=== PATIENT | male | born 1965 | race Caucasian/White ===

== ENCOUNTER 2019-03-28 06:27 | Outpatient (CLI) | payer BC ==
[~2019-03-28] VITALS: Ht 180.3 cm; Wt 137.4 kg
[2019-03-28] MEDS ORDERED: HYDR25TA4 PO (13:48)
[2019-03-28] MEDS ORDERED: ENAL10TA PO (13:48)
== END 2019-03-28 14:22 | disposition home or self-care (01) ==
LOC: PREOP 06:27
PROVIDERS: ATTEND Surgery
DX: Z01.818 Encounter for other preprocedural examination (principal)

== ENCOUNTER 2019-03-29 11:30 | Day surgery (SDC) | payer BC ==
[~2019-03-29] VITALS: Ht 180.3 cm; Wt 137.4 kg
[~2019-03-29 11:30] MED LIST: ENAL10TA PO; HYDR25TA4 PO
[2019-03-29] MEDS ORDERED: NS IV 500 ML 500 ML ONE (11:32)
[2019-03-29] MEDS ORDERED: NS IV 500 ML 500 ML IV PRN (11:38)
[2019-03-29] MEDS ORDERED: LIDOCAINE JELLY 2% 6 ML SYRINGE MM PRN (11:45)
[2019-03-29] MEDS ORDERED: MIDAZOLAM 2 MG/2 ML (VERSED) VIAL IVP ONE (11:45)
[2019-03-29] MEDS ORDERED: fentaNYL INJECTION 100 MCG/2 ML AMP IVP ONE (11:45)
[2019-03-29 11:54] VITALS: BP 152/96
--- NOTE | 2019-03-29 12:09 | Conscious Sedation/ASA ---
Conscious Sedation Pre-Proced Time 12:00 ASA Score 2 For ASA 3 and 4: Consider anesthesia and medical clearance. Also, for patients with a history of failed moderate sedation consider anesthesia. Airway Lungs Heart ASA score ASA 1: a normal healthy patient ASA 2: a patient with a mild systemic disease (mid diabetes, controlled hypertension, obesity ASA 3: a patient with a severe systemic disease that limits activity (angina, COPD, prior Myocardial infarction) ASA 4: a patient with an incapacitating disease that is a constant threat to life (CHF, renal failure) ASA 5: a moribund patient not expected to survive 24 hrs. (ruptured aneurysm) ASA 6: a declared brain- patient whose organs are being harvested. For emergent operations, add the letter E after the classification Mallampati Classification Grade 2 Sedation Plan Analgesia, Amnesia, Plan communicated to team members, Discussed options with patient/fam, Discussed risks with patient/fam The patient is an appropriate candidate to undergo the planned procedure, sedation, and anesthesia. The patient immediately re-assessed prior to indication. ALEK MURRAY MD Mar 29, 2019 12:09
--- NOTE | 2019-03-29 12:10 | Progress Note-Pre Operative ---
Pre-Operative Progress Note H&P Reviewed The H&P was reviewed, patient examined and no changes noted. Date Seen by Provider: Mar 29, 2019 Time Seen by Provider: 12:00 Date H&P Reviewed: Mar 29, 2019 Time H&P Reviewed: 12:00 Pre-Operative Diagnosis: screening o ALEK MURRAY MD Mar 29, 2019 12:10
--- NOTE | 2019-03-29 12:11 | Discharge Inst-Surgical ---
D/C Lap Instructions-TERRI Follow Up Activity as tolerated High Fiber Diet 25g or more per day Avoid Alcohol, Caffeine, Spicy [place] and Acid foods. Drink 64 fluid oz or more of fluids per day. Symptoms to Report: Fever over 101 degree F, Nausea/Vomiting If any problems/questions: Contact your physician or go to Emergency Room ALEK MURRAY MD Mar 29, 2019 12:10
[2019-03-29] MEDS ORDERED: ACETAMINOPHEN 325 MG TABLET PO PRN (12:15)
[2019-03-29] MEDS ORDERED: HYDROcodone/APAP 5 MG/325 MG (LORTAB) TAB PO PRN (12:15)
[2019-03-29] MEDS ORDERED: ONDANSETRON 4 MG/2 ML (SDV) Z0FRAN IVP PRN (12:15)
[2019-03-29] MEDS ORDERED: morphine INJ 10 MG/ML 1ML (SYR OR VIAL) IVP PRN (12:15)
[2019-03-29] MEDS ORDERED: LIDOCAINE JELLY 2% 6 ML SYRINGE ONE (12:55)
[2019-03-29] MEDS ORDERED: fentaNYL INJECTION 100 MCG/2 ML AMP ONE ×2 (12:55)
[2019-03-29] MEDS ORDERED: MIDAZOLAM 2 MG/2 ML (VERSED) VIAL ONE ×4 (12:55→12:56)
--- NOTE | 2019-03-29 13:36 | Progress Note-Post Operative ---
Post-Operative Progess Note Surgeon (s)/Turntable Operator (s) Surgeon ALEK MURRAY MD Turntable Operator: none Pre-Operative Diagnosis screening colo Post-Operative Diagnosis mild chronic stage1 ext and int hemorrhoids. Procedure & Operative Findings Date of Procedure 03/29/19 Procedure Performed/Findings colonoscopy Anesthesia Type cs Estimated Blood Loss Estimated blood loss (mL): minimal Specimens/Packing Specimens Removed none ALEK MURRAY MD Mar 29, 2019 13:36
[2019-03-29 13:55] VITALS: BP 122/74
[2019-03-29 14:25] VITALS: BP 109/71
[2019-03-29 14:45] VITALS: BP 109/71
--- NOTE | 2019-03-29 18:03 | OPERATIVE REPORT ---
DATE OF SERVICE: 03/29/2019 ATTENDING PRIMARY CARE PHYSICIAN: Dr. Laird. PREOPERATIVE DIAGNOSIS: Screening colonoscopy. POSTOPERATIVE DIAGNOSIS: Mild chronic stage I external and internal hemorrhoids. Remainder of the rectum and colon were normal. PROCEDURE: Colonoscopy. SURGEON: Alek Murray MD ANESTHESIA: Conscious sedation. ESTIMATED BLOOD LOSS: Minimal. FINDINGS: Mild chronic stage I external and internal hemorrhoids. Prostate gland was palpable and appeared normal. The remainder of the rectum and colon were normal. There were no polyps or any neoplasms identified. DISPOSITION: The patient tolerated the procedure well. INDICATIONS: The patient is a 53-year-old male in need of a screening colonoscopy. He has not had a colonoscopy up to this point in his life. He states that he is otherwise doing well and tolerating a regular diet and having normal bowel movements with no major issues with diarrhea or constipation as well as no red blood per rectum nor any dark tarry stools. He also does not report any family history of colon cancer. DESCRIPTION OF PROCEDURE: The patient was brought to the endoscopy suite, laid in the left lateral decubitus position. After adequate IV pain and sedative medications and conscious sedation anesthesia, a digital rectal examination was performed. Mild chronic stage I external and internal hemorrhoids were identified, which were not actively edematous or inflamed and no bleeding. Normal sphincter tone was felt and there were no palpable masses. The endoscope was then intubated to the anus and rectum gently insufflated. The endoscope was then advanced to the valves of [place] in the rectum with no polyps or any neoplasms identified. We then proceeded to the sigmoid colon where no diverticulosis identified. The endoscope was then advanced to the remainder of the descending, transverse and ascending colon to the cecum. These segments were normal. There were no polyps or any neoplasms identified throughout the colon or rectum. The endoscope was then slowly withdrawn while taking a second look and suctioning residual air with no additional findings. The patient tolerated the procedure well. We will recommend continued conservative medical management with a high-fiber diet with at least 30 grams of fiber per day as well as significant amounts of water to promote soft stools on a daily basis. He does not need another colonoscopy for another 10 years. Job ID: [id number] DocumentID: [id number] Dictated Date: 03/29/2019 13:31:48 Photo Equipment Technician Date: 03/29/2019 18:02:36 Dictated By: ALEK MURRAY MD
== END 2019-03-29 14:45 | disposition home or self-care (01) ==
LOC: ENDO 11:30
PROVIDERS: ATTEND Surgery
DX: Z12.11 Encounter for screening for malignant neoplasm of colon (principal); K64.0 First degree hemorrhoids; I10 Essential (primary) hypertension; Z79.899 Other long term (current) drug therapy; Z80.1 Family history of malignant neoplasm of trachea, bronchus and lung

== ENCOUNTER → 2022-12-10 | Outpatient (CLI) | payer BC ==
[~2022-12-10] MED LIST changes: -ENAL10TA PO; +ENAL10TA16 PO
--- NOTE | 2022-12-10 17:21 | Diagnostic Imaging Report ---
INDICATION: Knee pain times one week. EXAMINATION: Right knee 12/10/2022. FINDINGS: 3 views of the knee. There is minimal joint fluid. Mild patellofemoral narrowing is present with moderate medial compartment narrowing. Lateral joint space appears preserved. There are likely small loose bodies in the joint. No fractures or dislocations. IMPRESSION: 1. 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 Dictated by: Dictated on workstation # [id number]
== END ==
LOC: RAD 16:26
PROVIDERS: ATTEND Family Medicine
DX: M17.11 Unilateral primary osteoarthritis, right knee (principal)
CPT/HCPCS: 73562